=== PATIENT | female | born 1985 | race Caucasian/White ===

== ENCOUNTER 2020-06-11 22:00 | Outpatient (REF) | payer SELFPAY ==
[2020-06-14 18:35] LABS: Patient Race White; SARS-CoV-2 RNA Undetected (Undetected); SARS-CoV-2 Specimen Source Nasal
== END 2020-06-11 22:20 ==
LOC: NCHCN 22:00
PROVIDERS: PCP Family Medicine; Visit Provider Nurse Practitioner Family
DX: J34.89 Other specified disorders of nose and nasal sinuses (principal); Z11.59 Encounter for screening for other viral diseases
CPT/HCPCS: U0003

== ENCOUNTER 2022-01-27 14:58 | Outpatient (REF) | payer BC, SELFPAY ==
[2022-01-27 14:36] LABS: HCT 40.2 % (36.0-46.0); HGB 13.4 g/dL (11.2-15.7); MCHC 33.3 % (32.0-36.0); MCV 84 fL (80-95); Platelet Count 328 10^3/uL (130-400); RBC 4.79 10^6/uL (3.93-5.22); RDW 12.7 % (11.7-14.6); RDW-SD 39.1 fL; WBC 5.81 10^3/uL (4.4-10.8)
[2022-01-27 15:59] LABS: ALT 20 U/L (14-59); AST 17 U/L (15-37); Albumin 4.1 g/dL (3.4-5.0); Alkaline Phosphatase 79 U/L (46-116); Anion Gap 9.3 mmol/L (3-11); Bilirubin, Total 0.3 mg/dL (0.2-1.0); CO2 25.7 mmol/L (21.0-32.0); Calcium 8.8 mg/dL (8.5-10.1); Chloride 106 mmol/L (98-107); Cholesterol 175 mg/dL (<200); Glucose 91 mg/dL (74-106); Potassium 4.1 mmol/L (3.5-5.1); Sodium 141 mmol/L (136-145); TSH 3.44 uIU/mL (0.36-3.74); Total Protein 7.6 g/dL (6.4-8.2); Triglyceride 52 mg/dL (<150)
[2022-01-27 16:26] LABS: BUN 11 mg/dL (7-18); Calculated LDL 101 mg/dL (<100); HDL Cholesterol 64 mg/dL (40-60)
[2022-01-28 17:33] LABS: Hemoglobin A1C 5.1 % (<5.7)
== END 2022-01-27 14:59 | disposition home or self-care (01) ==
LOC: NCHCN 14:58
PROVIDERS: PCP Family Medicine; Visit Provider Nurse Practitioner Family
DX: E66.01 Morbid (severe) obesity due to excess calories (principal); E03.9 Hypothyroidism, unspecified; Z13.220 Encounter for screening for lipoid disorders; Z13.1 Encounter for screening for diabetes mellitus; Z00.00 Encounter for general adult medical examination without abnormal findings
CPT/HCPCS: 80053; 80061; 85027; 83036; 84443

== ENCOUNTER 2022-02-03 13:49 | Outpatient (REF) | payer BC, SELFPAY ==
--- NOTE | 2022-02-03 13:30 | PAPFT_PTH ---
PATIENT: Gena Guevara LOC: [facility]#:[id number] AGE/SX: 36/F ROOM: RE02/03/[address]: Cecelia Hart : 1985 BED: DIS: 02/03/2022 SPEC #: [id number] RECD: 02/04/22 18:01 STATUS: DIANN LEACH #: [id number] JOSY: 02/03/22 13:[address]: Cecelia Butterfield DEPT: [facility] Cytology RECD BY: Rakel Walker ENTERED: 02/04/22 18:02 SP TYPE: PAPFT SHANICEHR DR: Janina Cervantes Tissues: 1 - CX/ENDOCX FOR PAP SMEARS Procedures: PAP THIN PREP/[facility] Screening HPV DNA PROBE Comments: [id number]
== END 2022-02-03 13:50 | disposition home or self-care (01) ==
LOC: NCHCN 13:49
PROVIDERS: PCP Family Medicine; Visit Provider Nurse Practitioner Family
DX: Z00.00 Encounter for general adult medical examination without abnormal findings (principal); Z12.4 Encounter for screening for malignant neoplasm of cervix; Z11.51 Encounter for screening for human papillomavirus (HPV)
CPT/HCPCS: 88142; 87624